=== PATIENT | male | born 1980 | race Caucasian/White ===

== ENCOUNTER 2016-09-12 22:54 | Emergency (ER) | payer MEDICAID ==
--- NOTE | 2016-09-12 23:49 | ED Physician Documentation ---
History of Present Illness - Stated complaint Stated Complaint: R LEG PAIN/SWELLING - Chief complaint Chief Complaint: Ext Problem - History obtained from History obtained from: Patient - History of Present Illness Timing: Yesterday Improved by: no ameliorating factors Worsened by: palpation, weight-bearing - Additonal information Additional information: c/o redness, pain, and swelling right distal leg and down to foot and toes. denies any significant injury Review of Systems Constitutional: denies: Fever Skin: reports: Rash Musculoskeletal: reports: Extremity pain, Extremity swelling, Pain with weight bearing PD PAST MEDICAL HISTORY - Past Medical History Past Medical History: No Cardiovascular: None Respiratory: None Neuro: None Endocrine/Autoimmune: None GI: None : None HEENT: None Psych: None Musculoskeletal: None Derm: None - Past Surgical History Past Surgical History: Yes - Present Medications Home Medications: Ambulatory Orders Medication Instructions Recorded Confirmed HYDROcod/ACETAM 5/325 [[place] 5/325] 1 - 2 ea PO Q6H PRN #12 tablet 09/13/16 Sulfamethox/Trimeth 800/160 1 each PO BID #14 tablet 09/13/16 [Bactrim Ds 800/160] - Allergies Allergies/Adverse Reactions: Allergies Allergy/AdvReac Type Severity Reaction Status Date / Time No Known Drug Allergies Allergy Verified 09/13/16 01:51 - Social History Does the pt smoke?: Yes Smoking Status: Current every day smoker Does the pt drink ETOH?: No Does the pt have substance abuse?: Yes Substance Use and Type: Meth - Immunizations Immunizations are current?: No - POLST Patient has POLST: No PD ED PE NORMAL - Vitals Vital signs reviewed: Yes - General General: Alert and oriented X 3, No acute distress, Well developed/nourished - Neuro Neuro: No motor deficit, No sensory deficit PD ED PE EXPANDED - Extremities YESSICA LE visual: 1 - rash (erythema with sharp margins, increased warmth to touch), swelling, tenderness 2 - swelling Results - Vitals Vitals: Vital Signs - 24 hr 09/12/16 09/13/16 22:58 01:42 Temperature 35.9 C L 37.0 C Heart Rate 116 H 110 H Respiratory 18 16 Rate Blood Pressure 154/101 H 154/84 H O2 Saturation 100 98 Oxygen O2 Source Room air - Rads (name of study) RLE US doppler Radiology: Prelim report reviewed, See rad report PD MEDICAL DECISION MAKING - ED course Complexity details: reviewed results, re-evaluated patient, considered differential, d/w patient Departure - Departure Disposition: 01 Home, Self Care Clinical Impression: Cellulitis Qualifiers: Site of cellulitis: extremity Site of cellulitis of extremity: lower extremity Laterality: right Qualified Code(s): L03.115 - Cellulitis of right lower limb Condition: Good Instructions: ED Infec Skin Cellulitis, ED Hypertension Poss Follow-Up: [facility] [Provider Group] [facility] [Provider Group] Prescriptions: Sulfamethox/Trimeth 800/160 [Bactrim Ds 800/160] 1 each PO BID #14 tablet HYDROcod/ACETAM 5/325 [[place] 5/325] 1 - 2 ea PO Q6H PRN #12 tablet PRN Reason: Pain Discharge Date/Time: 09/13/16 01:51
--- NOTE | 2016-09-13 01:23 | Ultrasound Preliminary Report ---
Exam: US Duplex Ext Veins Right IMPRESSION: 1. No superficial or deep venous thrombosis. 2. Fluid collection in the lateral right knee is nonspecific. Differential includes a seroma or resol ving hematoma. Additional considerations include fluid in a bursa. [facility] SITE ID: [id number]
--- NOTE | 2016-09-13 01:25 | Ultrasound Report ---
EXAM: RIGHT LOWER EXTREMITY VENOUS ULTRASOUND EXAM DATE: 09/13/2016 12:16 AM. CLINICAL HISTORY: RLE swelling, pain. COMPARISON: None. TECHNIQUE: Real-time sonographic vascular imaging was performed by the habilitation assistant through the lower extremity utilizing both color-flow and Doppler spectral analysis. Multiple sales representative meats static keyla ges were saved for review. FINDINGS: Common Femoral Vein (CFV): Normal. CFV-GSV Junction: Normal. Profunda Femoral Vein (PFV): Normal. Femoral Vein (FV) Prox: Normal. Femoral Vein (FV) Mid: Normal. Femoral Vein (FV) Dist: Not well seen. Popliteal Vein: Normal. Posterior Tibial Veins: Normal. Peroneal Veins: Normal. Contralateral Side CFV: Normal. Other: Prominent right inguinal node measuring 2 x 1 cm. Normal fatty farhad noted. Right leg edema not ed. There is a fluid containing anechoic structure in the lateral right knee measuring 2.5 x 1 x 1.1 cm. IMPRESSION: 1. No superficial or deep venous thrombosis. 2. Fluid collection in the lateral right knee is nonspecific. Differential includes a seroma or resol ving hematoma. Additional considerations include fluid in a bursa. [facility] Referring Provider Line: [phone] SITE ID: [id number]
[2016-09-13] MEDS ORDERED: HYDROcod/ACET 5/325 Prepack 6 PO STA (01:33)
[2016-09-13] MEDS ORDERED: SULFAMETH/TRIMETH DS 800/160 MG TABLET PO STA (01:33)
[2016-09-13] MEDS ORDERED: HYDROcod/ACET 5/325 Prepack 6 PO ONE (01:37)
[2016-09-13] MEDS ORDERED: SULFAMETH/TRIMETH DS 800/160 MG TABLET PO ONE (01:37)
[2016-09-13 01:43] VITALS: BP 154/84
== END 2016-09-13 01:51 | disposition home or self-care (01) ==
LOC: ED 22:54
DX: L03.115 Cellulitis of right lower limb (principal); F17.200 Nicotine dependence, unspecified, uncomplicated
CPT/HCPCS: 93971; 99283; 99284; A9270

== ENCOUNTER 2016-10-02 11:11 | Outpatient (CLI) | payer MEDICAID ==
[2016-10-02 19:21] LABS: ALBUMIN/GLOBULIN RATIO 1.3 (1.0-2.2); BILIRUBIN,TOTAL 0.4 mg/dL (0.2-1.0); BUN - BLOOD UREA NITROGEN 15 mg/dL (6-20); CALCIUM 9.7 mg/dL (8.5-10.3); CARBON DIOXIDE - CO2 28 mmol/L (21-32); CHLORIDE 101 mmol/L (101-111); CHOL/HDL RATIO 3.3 (<5.0); CHOLESTEROL 164 mg/dL; CREATININE 1.1 mg/dL (0.6-1.2); GFR - MDRD 75 (>89); GLUCOSE 79 mg/dL (70-100); HDL CHOLESTEROL 50 mg/dL; LDL/HDL RATIO 1.5 (<3.6); POTASSIUM 3.8 mmol/L (3.5-5.0); SODIUM 136 mmol/L (135-145); TOTAL PROTEIN 8.1 g/dL (6.7-8.2); TRIGLYCERIDES 190 mg/dL; VLDL CHOLESTEROL 38 mg/dL
[2016-10-02 19:38] LABS: BASOPHILS # (AUTO) 0.1 10^3/uL (0.0-0.1); BASOPHILS % (AUTO) 0.9 %; EOSINOPHILS # (AUTO) 0.1 10^3/uL (0.0-0.7); EOSINOPHILS % (AUTO) 0.8 %; HCT - HEMATOCRIT 44.7 % (42.0-52.0); HGB - HEMOGLOBIN 14.8 g/dL (14.0-18.0); LYMPHOCYTES # (AUTO) 2.8 10^3/uL (1.5-3.5); LYMPHOCYTES % (AUTO) 27.2 %; MEAN CORPUSCULAR HEMOGLOBIN 29.9 pg (27.0-31.0); MEAN CORPUSCULAR HGB CONC 33.2 g/dL (32.0-36.0); MEAN CORPUSCULAR VOLUME 90.2 fL (80.0-94.0); MEAN PLATELET VOLUME 7.7 fL (7.4-11.4); MONOCYTES # (AUTO) 0.9 10^3/uL (0.0-1.0); MONOCYTES % (AUTO) 8.5 %; NEUTROPHILS # (AUTO) 6.4 10^3/uL (1.5-6.6); NEUTROPHILS % (AUTO) 62.6 %; NUCLEATED RED BLOOD CELLS AUTO 0.1 /100WBC; RED BLOOD COUNT 4.96 10^6/uL (4.70-6.10); RED CELL DISTRIBUTION WIDTH 12.8 % (12.0-15.0); UNCORRECTED WHITE BLOOD COUNT 10.2 x10^3/uL; WHITE BLOOD COUNT 10.2 x10^3/uL (4.8-10.8)
[2016-10-08 15:02] LABS: TREPONEMA AB IGG NEGATIVE (())
== END 2016-10-02 11:12 ==
LOC: LAB.N 11:11
PROVIDERS: ATTEND Physician Assistant
DX: I10 Essential (primary) hypertension (principal); Z11.3 Encounter for screening for infections with a predominantly sexual mode of transmission
CPT/HCPCS: 36415; 80053; 80061; 84443; 85025; 86780; 86803; 87389; 87491; 87591

== ENCOUNTER 2020-12-27 03:16 | Emergency (ER) | payer MEDICAID ==
[2020-12-27 05:11] LABS: BASOPHILS % (AUTO) 0.3 %; EOSINOPHILS % (AUTO) 0.2 %; HCT - HEMATOCRIT 47.3 % (42.0-52.0); LYMPHOCYTES # (AUTO) 1.6 10^3/uL (1.5-3.5); LYMPHOCYTES % (AUTO) 23.6 %; MEAN CORPUSCULAR HEMOGLOBIN 30.4 pg (27.0-31.0); MEAN CORPUSCULAR HGB CONC 33.8 g/dL (32.0-36.0); MEAN CORPUSCULAR VOLUME 89.8 fL (80.0-94.0); MEAN PLATELET VOLUME 9.4 fL (7.4-11.4); MONOCYTES # (AUTO) 1.1 10^3/uL (0.0-1.0); MONOCYTES % (AUTO) 17.2 %; NEUTROPHILS # (AUTO) 3.9 10^3/uL (1.5-6.6); NEUTROPHILS % (AUTO) 58.2 %; PLT - PLATELET COUNT 184 10^3/uL (130-450); RED BLOOD COUNT 5.27 10^6/uL (4.70-6.10); RED CELL DISTRIBUTION WIDTH 12.5 % (12.0-15.0); WHITE BLOOD COUNT 6.6 x10^3/uL (4.8-10.8)
[2020-12-27 05:20] LABS: BILIRUBIN,TOTAL 0.7 mg/dL (0.2-1.0); CALCIUM 8.6 mg/dL (8.5-10.3); CREATININE 1.2 mg/dL (0.6-1.2); POTASSIUM 4.1 mmol/L (3.5-5.0)
[2020-12-27] MEDS ORDERED: IOPAMIDOL-300 50 ML VIAL ONE (05:35)
[2020-12-27] MEDS ORDERED: CASIRIVIMAB/IMDEVIMAB 10 ML in SODIUM CHLORIDE 0.9% 50 ML IV SCH (06:00)
--- NOTE | 2020-12-27 06:00 | ED Physician Documentation ---
PD HPI URI - Stated complaint Stated Complaint: C+, COUGHING BLOOD, SOA - Chief complaint Chief Complaint: Resp - History obtained from History obtained from: Patient - History of Present Illness Timing - onset: How many days ago (4) Timing duration: Days (4) Timing details: Gradual onset, Still present Associated symptoms: Fever, Nasal congestion, Rhinorrhea, Productive cough, Hemoptysis, Chest pain, Dyspnea Contributing factors: Sick contact (girlfriend with COVID-19) Improves by: Rest, Medication Similar symptoms before: Has not had sx before Recently seen: Not recently seen, Other (had at home covid test +) - Additional information Additional information: 40-year-old male who has been exposed to his girlfriend who has COVID-19 has developed symptoms over the past 2 days and he has had a positive test at home yesterday. He has been begin to cough sometimes excessively and he has brought up some blood in his sputum. Review of Systems Constitutional: reports: Fever, Chills, Myalgias, Fatigue, Sweats Eyes: denies: Decreased vision Ears: denies: Ear pain Nose: reports: Congestion. denies: Rhinorrhea / runny nose Throat: reports: Sore throat Cardiac: reports: Chest pain / pressure. denies: Palpitations Respiratory: reports: Dyspnea, Cough, Wheezing GI: denies: Abdominal Pain, Nausea, Vomiting, Diarrhea : denies: Dysuria, Frequency PD PAST MEDICAL HISTORY - Past Medical History Past Medical History: No Cardiovascular: None Respiratory: None Endocrine/Autoimmune: None GI: None : None HEENT: None Psych: None Musculoskeletal: None Derm: None - Past Surgical History Past Surgical History: Yes - Present Medications Home Medications: Ambulatory Orders Medication Instructions Recorded Confirmed Azithromycin [Zithromax] 250 mg PO DAILY #6 tablet 12/27/20 - Allergies Allergies/Adverse Reactions: Allergies Allergy/AdvReac Type Severity Reaction Status Date / Time No Known Drug Allergies Allergy Verified 09/13/16 01:51 - Social History Does the pt smoke?: Yes Smoking Status: Former smoker Does the pt drink ETOH?: No Does the pt have substance abuse?: No - Immunizations Immunizations are current?: No - POLST Patient has POLST: No PD ED PE NORMAL - Vitals Vital signs reviewed: Yes (Tachycardic and hypertensive) - General General: Alert and oriented X 3, Well developed/nourished, Other (40-year-old male drenched in sweat with labored breathing) - HEENT HEENT: Atraumatic, PERRL, EOMI, Other (The right TM is erythematous with distortion of the landmarks left is clear there is drainage in the posterior pharynx including blood.) - Neck Neck: Supple, no meningeal sign, No bony TTP - Cardiac Cardiac: RRR, No murmur - Respiratory Respiratory: Other (Tachypneic at rest with diminished breath sounds without specific rhonchi) - Abdomen Abdomen: Soft, Non tender - Back Back: No CVA TTP, No spinal TTP - Derm Derm: Normal color, Warm and dry, No rash - Extremities Extremities: No deformity, No edema - Neuro Neuro: Alert and oriented X 3, traffic analyst 2-12 intact, No motor deficit, No sensory deficit, Normal speech Eye Opening: Spontaneous Motor: Obeys Commands Verbal: Oriented GCS Score: 15 - Psych Psych: Normal mood, Normal affect Results - Vitals Vitals: Vital Signs - 24 hr 12/27/20 12/27/20 12/27/20 03:34 03:38 04:34 Temperature 37.1 C 37.1 C Heart Rate 113 H 112 H 100 Respiratory 22 22 21 Rate Blood Pressure 156/116 H 156/116 H 144/108 H O2 Saturation 97 98 96 12/27/20 12/27/20 12/27/20 06:00 06:29 06:54 Temperature 37.4 C Heart Rate 97 98 102 H Respiratory 20 20 21 Rate Blood Pressure 131/88 H 142/95 H 140/99 H O2 Saturation 98 98 98 12/27/20 07:03 Temperature 37.4 C Heart Rate 96 Respiratory 21 Rate Blood Pressure 142/97 H O2 Saturation 96 Oxygen O2 Source Room air - Labs Labs: Laboratory Tests 12/27/20 12/27/20 04:51 04:51 WBC 6.6 RBC 5.27 Hgb 16.0 Hct 47.3 MCV 89.8 MCH 30.4 MCHC 33.8 RDW 12.5 Plt Count 184 MPV 9.4 Neut # (Auto) 3.9 Lymph # (Auto) 1.6 [place] # (Auto) 1.1 H Eos # (Auto) 0.0 Baso # (Auto) 0.0 Absolute Nucleated RBC 0.00 Nucleated RBC % 0.0 Sodium 138 Potassium 4.1 Chloride 100 L Carbon Dioxide 27 Anion Gap 11.0 BUN 16 Creatinine 1.2 Estimated GFR (MDRD) 67 L Glucose 111 H Calcium 8.6 Total Bilirubin 0.7 AST 30 ALT 34 Alkaline Phosphatase 57 Total Protein 8.0 Albumin 4.0 Globulin 4.0 Albumin/Globulin Ratio 1.0 Lipase 55 H - Rads (name of study) chest Radiology: Prelim report reviewed (Impression: 1. No acute abnormality.), EMP read indepedently, See rad report CT chest with Radiology: Prelim report reviewed (Impression: 1. Small paraesophageal hiatal hernia. Otherwise normal CT scan of the chest.), EMP read indepedently, See rad report PD MEDICAL DECISION MAKING - ED course Complexity details: reviewed old records, reviewed results, re-evaluated patient, considered differential, d/w patient ED course: 40-year-old male with COVID-19 has been coughing up some blood and evaluation of the chest demonstrates no specific source of blood from the chest itself. On examination the patient appears to have blood draining down the posterior sinus on the right side. I suspect this is the site of his blood in his sputum. He does have early COVID-19 and he is administered Regeneron. We will place the patient on a course of azithromycin for otitis. He is not in the stage of his infection where dexamethasone would improve his outcome. Departure - Departure Disposition: 01 Home, Self Care Clinical Impression: COVID-19 Otitis media Qualifiers: Otitis media type: suppurative Chronicity: acute Laterality: right Recurrence: not specified as recurrent Spontaneous tympanic membrane rupture: without spontaneous rupture Qualified Code(s): H66.001 - Acute suppurative otitis media without spontaneous rupture of ear drum, right ear Condition: Stable Instructions: ED Otitis Media Acute Adult, COVID-19 [facility], Flu and Cold: Nutrition, Prevention and Treatment Tips Follow-Up: [facility] [Provider Group] Prescriptions: Azithromycin [Zithromax] 250 mg PO DAILY #6 tablet
[2020-12-27] MEDS ORDERED: IOPAMIDOL-300 50 ML VIAL IVP ONE (06:07)
[2020-12-27] MEDS ORDERED: SODIUM CHLORIDE 0.9% 1,000 ML IV STA (07:17)
--- NOTE | 2020-12-27 08:40 | XRAY Report ---
PROCEDURE: Chest 1 View X-Ray INDICATIONS: Chest pain TECHNIQUE: One view of the chest was acquired. COMPARISON: None. FINDINGS: Surgical changes and devices: None. Lungs and pleura: No pleural effusions or pneumothorax. Lungs are clear. Mediastinum: Mediastinal contours appear normal. Heart size is normal. Bones and chest wall: No suspicious bony lesions. Overlying soft tissues appear unremarkable. IMPRESSION: No acute cardiopulmonary process demonstrated radiographically. No significant change from preliminar y report. Reviewed by: Anand Vance MD on 12/27/2020 8:39 AM PDT Approved by: Anand Vance MD on 12/27/2020 8:39 AM PDT Station ID: [id number]
--- NOTE | 2020-12-27 09:14 | CT Report ---
PROCEDURE: CHEST W INDICATIONS: hemoptysis CONTRAST: IV CONTRAST: Isovue 300 ml: 100 PO CONTRAST: *NO PO CONTRAST TECHNIQUE: After the administration of intravenous contrast, images were acquired from the pulmonary apices to t he posterior costophrenic angles. Multiplanar MIP reformats were acquired. For radiation dose reduc tion, the following was used: automated exposure control, adjustment of mA and/or kV according to pa tient size. COMPARISON: None. FINDINGS: Image quality: Excellent. Lungs and pleura: No acute air space opacities. Scattered atelectasis in posterior lateral peripher y of bilateral lung houser are seen more prominent in right lower lobe. No pleural effusions or pneum othorax. Central and peripheral airways are patent and normal in caliber. Mediastinum: Heart size is normal. No pericardial effusion. No mediastinal or hilar adenopathy by size criteria. Thoracic aorta and central pulmonary arteries are normal in size. Mild to distal esop hageal wall thickening and small hiatal hernia is seen. Bones and chest wall: No suspicious bony lesions. No vertebral body compression fractures. No axil suzie or supraclavicular adenopathy by size criteria. The thyroid is normal in size and there are no incidental findings.. Abdomen: Visualized upper abdominal solid organs appear normal. Hepatic steatosis is seen. Upper ab dominal bowel loops are normal in caliber. IMPRESSION: 1. Atelectasis in bilateral lower lung houser. Bilateral lungs are otherwise clear. 2. No mediastinal or hilar lymphadenopathy. No thoracic aortic aneurysm or dissection. 3. Suggestion of distal esophageal wall thickening and small hiatal hernia which may represent esopha gitis, clinical correlation is recommended. No significant discrepancies from pulmonary bleeding. CLINICAL RECOMMENDATION STATEMENTS: In patients <35 years with an ITN detected on CT, MRI, or extrathyroidal ultrasound, the Committee re commends further evaluation with dedicated thyroid ultrasound if the nodule is ?1 cm and has no suspi cious imaging features, and if the patient has normal life expectancy. In patients ?35 years with an ITN detected on CT, MRI, or extrathyroidal ultrasound, the Committee re commends further evaluation with dedicated thyroid ultrasound if the nodule is ?1.5 cm and has no leonid picious imaging features, and if the patient has normal life expectancy. (ACR, 2014) Reviewed by: Nolberto Vazquez MD on 12/27/2020 9:13 AM PDT Approved by: Nolberto Vazquez MD on 12/27/2020 9:13 AM PDT Station ID: [id number]
[2020-12-27 09:16] VITALS: BP 120/80
== END 2020-12-27 08:55 | disposition home or self-care (01) ==
LOC: ED 03:16
DX: U07.1 COVID-19 (principal); H66.001 Acute suppurative otitis media without spontaneous rupture of ear drum, right ear; Z87.891 Personal history of nicotine dependence
CPT/HCPCS: 36415; 71045; 71260; 80053; 83690; 85025; 99284; M0243; Q9967

== ENCOUNTER 2021-02-07 16:48 | Emergency (ER) | payer MEDICAID ==
--- NOTE | 2021-02-07 17:18 | ED Physician Documentation ---
History of Present Illness - Stated complaint Stated Complaint: RT LEG POSSIBLE SPIDER BITE - Chief complaint Chief Complaint: Ext Problem - History obtained from History obtained from: Patient - History of Present Illness Timing: How many days ago (2) Pain level max: 8 Pain level now: 8 - Additonal information Additional information: aching, dull pain R medial calf. worse with walking. better with rest. denies any drug use. no fever. chills. Has noticed redness and pain. Similar to past episodes of cellulitis. Review of Systems Constitutional: denies: Fever, Chills Respiratory: denies: Cough GI: denies: Vomiting, Diarrhea Skin: denies: Rash Musculoskeletal: denies: Neck pain, Back pain Neurologic: denies: Headache PD PAST MEDICAL HISTORY - Past Medical History Past Medical History: Yes Cardiovascular: None Respiratory: None Neuro: None Endocrine/Autoimmune: None GI: None : None HEENT: None Psych: None Musculoskeletal: None Derm: None Other Past Medical History: had covid in december 2020 - Past Surgical History Past Surgical History: Yes - Present Medications Home Medications: Ambulatory Orders Medication Instructions Recorded Confirmed Sulfamethox/Trimeth 800/160 1 each PO BID #20 tablet 02/07/21 [Bactrim Ds 800/160] cephALEXin [Keflex] 500 mg PO Q6H #40 cap 02/07/21 - Allergies Allergies/Adverse Reactions: Allergies Allergy/AdvReac Type Severity Reaction Status Date / Time No Known Drug Allergies Allergy Verified 02/07/21 16:57 - Social History Does the pt smoke?: No Smoking Status: Former smoker Does the pt drink ETOH?: No Does the pt have substance abuse?: No - Immunizations Immunizations are current?: No - POLST Patient has POLST: No PD ED PE NORMAL - Vitals Vital signs reviewed: Yes - General General: Alert and oriented X 3, No acute distress - HEENT HEENT: Moist mucous membranes - Neck Neck: Supple, no meningeal sign - Cardiac Cardiac: RRR - Respiratory Respiratory: No respiratory distress, Clear bilaterally - Abdomen Abdomen: Soft, Non tender, Non distended - Derm Derm: Warm and dry - Extremities Extremities: Other (erythema to R medial calf, 4x6cm. no cord. No posterior calf pain. No crepitus.) - Neuro Neuro: Alert and oriented X 3 - Psych Psych: Normal mood, Normal affect Results - Vitals Vitals: Vital Signs - 24 hr 02/07/21 02/07/21 16:52 17:35 Temperature 36.4 C L 37.0 C Heart Rate 107 H 109 H Respiratory 18 18 Rate Blood Pressure 147/90 H 130/90 H O2 Saturation 100 100 Oxygen O2 Source Room air PD MEDICAL DECISION MAKING - ED course Complexity details: considered differential, d/w patient ED course: 40-year-old male with what appears to be cellulitis of the right lower extremity. We will place on antibiotics for home and expect this to begin to improve within 24 to 36 hours. Patient is well-appearing, nontoxic. Afebrile. No evidence of sepsis. No indication for blood work. No evidence of abscess or necrotizing soft tissue infection. Patient counseled regarding signs and symptoms for which I believe and urgent re-evaluation would be necessary. Patient with good understanding of and agreement to plan and is comfortable going home at this time This document was made in part using voice recognition software. While efforts are made to proofread this document, sound alike and grammatical errors may occur. Departure - Departure Disposition: 01 Home, Self Care Clinical Impression: Cellulitis Qualifiers: Site of cellulitis: extremity Site of cellulitis of extremity: lower extremity Laterality: right Qualified Code(s): L03.115 - Cellulitis of right lower limb Condition: Good Instructions: ED Infec Skin Cellulitis Follow-Up: your,doctor in 1 week for recheck [Other] Prescriptions: Sulfamethox/Trimeth 800/160 [Bactrim Ds 800/160] 1 each PO BID #20 tablet cephALEXin [Keflex] 500 mg PO Q6H #40 cap Comments: Your prescriptions were sent to [facility] in [place]. Please take all antibiotics until gone. You should start to notice improvement within 24 to 36 hours. Please return if you worsen. Return for worsening redness, swelling, fevers, chills or other new or worrisome symptoms. Discharge Date/Time: 02/07/21 17:36
[2021-02-07] MEDS ORDERED: SULFAMETH/TRIMETH DS 800/160 MG TABLET PO STA (17:25)
[2021-02-07] MEDS ORDERED: cephALEXin 250 MG CAPSULE PO STA (17:25)
[2021-02-07 17:37] VITALS: BP 130/90
== END 2021-02-07 17:36 | disposition home or self-care (01) ==
LOC: ED 16:48
DX: L03.115 Cellulitis of right lower limb (principal); Z87.891 Personal history of nicotine dependence
CPT/HCPCS: 99282; 99284; A9270

== ENCOUNTER 2021-09-04 20:21 | Emergency (ER) | payer MEDICAID ==
--- NOTE | 2021-09-04 20:50 | ED Physician Documentation ---
History of Present Illness - Stated complaint Stated Complaint: C+,BODY ACHES - Chief complaint Chief Complaint: Resp - Additonal information Additional information: Patient is a 41-year-old male with no significant past medical history prese nting for evaluation after taking a home COVID test that was positive today. Patient reports feeling body aches and chills and took a home COVID test which was positive. He denies cough, difficulty breathing, chest pain or abdominal pain. He had COVID last year and was seen in the emergency department and had a Regeneron infusion. Patient was unsure if there was current treatment options which is why he presented to the emergency department. Review of Systems Constitutional: reports: Fever Nose: denies: Congestion Cardiac: denies: Chest pain / pressure, Palpitations Respiratory: denies: Dyspnea, Cough GI: denies: Abdominal Pain, Vomiting : denies: Dysuria Skin: denies: Rash Musculoskeletal: reports: Other (Myalgia). denies: Back pain Neurologic: denies: Headache PD PAST MEDICAL HISTORY - Past Medical History Past Medical History: Yes Cardiovascular: None Respiratory: None Neuro: None Endocrine/Autoimmune: None GI: None : None HEENT: None Psych: None Musculoskeletal: None Derm: None - Past Surgical History Past Surgical History: Yes - Present Medications Home Medications: Ambulatory Orders Medication Instructions Recorded Confirmed Sulfamethox/Trimeth 800/160 1 each PO BID #20 tablet 02/07/21 [Bactrim Ds 800/160] cephALEXin [Keflex] 500 mg PO Q6H #40 cap 02/07/21 - Allergies Allergies/Adverse Reactions: Allergies Allergy/AdvReac Type Severity Reaction Status Date / Time No Known Drug Allergies Allergy Verified 09/04/21 20:35 - Social History Does the pt smoke?: No Smoking Status: Never smoker Does the pt drink ETOH?: No Does the pt have substance abuse?: No - Immunizations Immunizations are current?: No - POLST Patient has POLST: No PD ED PE NORMAL - General General: Alert and oriented X 3, No acute distress, Well developed/nourished - HEENT HEENT: Atraumatic, Moist mucous membranes - Neck Neck: Supple, no meningeal sign - Cardiac Cardiac: No murmur, Strong equal pulses, Other (Tachycardic, regular rhythm) - Respiratory Respiratory: No respiratory distress, Clear bilaterally - Abdomen Abdomen: Normal bowel sounds, Soft, Non tender, Non distended - Derm Derm: Normal color, No rash - Extremities Extremities: No deformity, No edema - Neuro Neuro: Alert and oriented X 3, No motor deficit, Normal speech - Psych Psych: Normal mood, Normal affect Results - Vitals Vitals: Vital Signs - 24 hr 09/04/21 09/04/21 20:33 21:12 Temperature 37.1 C 37.0 C Heart Rate 115 H 101 H Respiratory 16 16 Rate Blood Pressure 147/94 H 138/80 H O2 Saturation 99 100 Oxygen O2 Source Room air PD MEDICAL DECISION MAKING - ED course ED course: Patient with fever and body aches presenting for evaluation after taking a home COVID test which was positive. Patient is slightly tachycardic but otherwise vital signs are reassuring. Oxygen saturations are normal and denies any difficulty breathing and does not appear labored. Does not appear to need admission for COVID treatment. Patient additionally has no comorbidities and does not meet high risk criteria for paxlovid. Patient was offered IV fluids given his tachycardia but feels he is able to continue to hydrate at home. He additionally declined Tylenol or any other further testing. I did explain we do not currently have monoclonal antibodies which he understands. He is aware of strict return precautions in regards to COVID and quarantine guidelines were also reviewed. Departure - Departure Disposition: 01 Home, Self Care Clinical Impression: COVID-19 Condition: Stable Instructions: COVID-19 [facility] Comments: Based on your symptoms today and your positive home test, it appears that you have COVID-19.Home tests are reliable when positive and I do not think we need to repeat a test here today. Your heart rate was slightly fast and we did offer you IV fluids to help hydrate you but you felt comfortable going home and continuing to hydrate yourself. You can use Motrin or Tylenol for fevers or body aches. Please continue to get plenty of rest and stay hydrated. If it anytime you feel you are having trouble breathing please return to the emergency department. Please go to the following website regarding current [facility] quarantine guidelines while infected with Covid 19. https://www.cdc.gov/coronavirus/2019-ncov/your-health/quarantine-isolation.html Discharge Date/Time: 09/04/21 21:12
[2021-09-04 21:13] VITALS: BP 138/80
== END 2021-09-04 21:12 | disposition home or self-care (01) ==
LOC: ED 20:21
DX: U07.1 COVID-19 (principal)
CPT/HCPCS: 99281; 99283

== ENCOUNTER 2022-07-12 23:34 | Emergency (ER) | payer MEDICAID ==
[2022-07-12 23:45] VITALS: BP 179/91
--- NOTE | 2022-07-13 01:03 | ED Physician Documentation ---
History of Present Illness - Stated complaint Stated Complaint: MALE - Chief complaint Chief Complaint: General - History obtained from History obtained from: Patient - Additonal information Additional information: Patient is a 41-year-old male presenting for evaluation of concern for worms in his stool. He reports that his cat just had worms. This evening when he had a bowel movement he noticed what appeared to be worms on the toilet paper. He says it appeared to be the same worms he saw on his cat. He denies abdominal pain, vomiting, diarrhea, anal pruritus. Denies fever, recent travel.He did not collect a stool specimen.Patient is unsure of the name of the medication that is Received but stated that it was a one-time medication and is requesting the same. Review of Systems Constitutional: denies: Fever Cardiac: denies: Chest pain / pressure Respiratory: denies: Dyspnea GI: denies: Abdominal Pain Musculoskeletal: denies: Back pain Neurologic: denies: Headache PD PAST MEDICAL HISTORY - Past Medical History Cardiovascular: None Respiratory: None Neuro: None Endocrine/Autoimmune: None GI: None : None HEENT: None Psych: None Musculoskeletal: None Derm: None - Past Surgical History Past Surgical History: Yes - Present Medications Home Medications: Ambulatory Orders Medication Instructions Recorded Confirmed Mebendazole [Emverm] 100 mg PO ONCE #2 ea 07/13/22 - Allergies Allergies/Adverse Reactions: Allergies Allergy/AdvReac Type Severity Reaction Status Date / Time No Known Drug Allergies Allergy Verified 07/12/22 23:41 - Social History Does the pt smoke?: Yes Smoking Status: Current every day smoker Does the pt drink ETOH?: No Does the pt have substance abuse?: Yes Substance Use and Type: Meth, Heroin - Immunizations Immunizations are current?: No - POLST Patient has POLST: No PD ED PE NORMAL - General General: Alert and oriented X 3, No acute distress, Well developed/nourished - HEENT HEENT: Atraumatic - Neck Neck: Supple, no meningeal sign - Cardiac Cardiac: RRR - Respiratory Respiratory: No respiratory distress, Clear bilaterally - Abdomen Abdomen: Soft, Non tender, Non distended - Male Male : Pt declined - Derm Derm: Warm and dry - Neuro Neuro: Normal speech Results - Vitals Vitals: Vital Signs - 24 hr 07/12/22 23:41 Temperature 36.8 C Heart Rate 88 Respiratory 20 Rate Blood Pressure 179/91 H O2 Saturation 100 Oxygen O2 Source Room air PD Medical Decision Making - ED course ED course: Patient presenting for evaluation of worms in his stools. His vital signs are stable and his abdominal exam is benign with no other associated symptoms. He was not able to give a stool sample. There is concern for possible parasite exposure as he states that his cat is undergoing treatment for worms. He does not appear to be under the influence of any substances. Patient is requesting medication similar to what his cat received. Patient given prescription for mebendazole. He is instructed on need for close follow-up with PCP as well as concerning symptoms to return for. Departure - Departure Disposition: 01 Home, Self Care Clinical Impression: Worms in stool Condition: Stable Instructions: ED Enterobiasis Prescriptions: Mebendazole [Emverm] 100 mg PO ONCE #2 ea Comments: You may have contracted a worm infection from your cat. I have sent a Prescription for an antiparasitic medication to [facility] in [place]. I would recommend close follow-up with your primary care doctor. Discharge Date/Time: 07/13/22 01:21
== END 2022-07-13 01:21 | disposition home or self-care (01) ==
LOC: ED 23:34
DX: B83.9 Helminthiasis, unspecified (principal); F17.200 Nicotine dependence, unspecified, uncomplicated
CPT/HCPCS: 99281; 99283